=== PATIENT | female | born 1995 | race Caucasian/White ===

== ENCOUNTER 2019-07-16 08:00 | Outpatient (CLI) | payer OTHER | END 2019-07-16 23:59 | disposition home or self-care (01) | LOC: LAB.R 08:00 | PROVIDERS: ATTEND Obstetrics & Gynecology | DX: Z34.03 Encounter for supervision of normal first pregnancy, third trimester (principal) | CPT/HCPCS: 87797 ==

== ENCOUNTER 2019-07-17 15:12 | Outpatient (CLI) | payer OTHER ==
--- NOTE | 2019-07-18 08:53 | Ultrasound Report ---
Reason: UTERINE SIZE DATE DISCREPANCY Procedure Date: 07/17/2019 Accession Number: [id number] / [id number] Procedure: US - OB F/U or Repeat CPT Code: FULL RESULT: EXAM: FOLLOW-UP OBSTETRICAL ULTRASOUND EXAM DATE: 07/17/2019 03:31 PM. CLINICAL HISTORY: Uterine size date discrepancy. COMPARISON: Prior outside ultrasound not available.. TECHNIQUE: Real-time sonographic evaluation of the fetus performed by the edger machine setter. Additional transvaginal imaging to more accurately evaluate cervical length/placental position/etc. Multiple retail sales representative static images were saved for review. DATING: LMP unknown. Previous outside ultrasound not available. EGA 37 weeks 1 day with CHAKA 08/06/2019 based on the current ultrasound. GENERAL EVALUATION Sales . Cardiac activity: 153 bpm. movement: Visualized. Presentation: Cephalic. Placenta: Anterior fundal position. No evidence of previa. Amniotic fluid: Normal. WILMER 15.1 cm. MVP 3.7 cm. BIOMETRY Bi-Parietal Diameter (BPD): 9.1 cm, 37 weeks 1 day. Head Circumference (HC): 33.2 cm, 37 weeks 6 days. Abdominal Circumference (AC): 32.7 cm, 36 weeks 4 days. Femur Length (FL): 7.3 cm, 37 weeks 2 days. Estimated Weight: 3072 g, 79.4 percentile for 39 weeks 0 days. ANATOMY Limited anatomy examination. MATERNAL STRUCTURES Cervical os closed. Approximate cervical length is 5.0 cm. IMPRESSION: 1. Sales live intrauterine with gestational age 37 weeks 1 day based on current ultrasound. 2. Estimated weight is within expected limits for assigned dating. CJ
== END 2019-07-17 15:13 | disposition home or self-care (01) ==
LOC: DI 15:12
PROVIDERS: ATTEND Obstetrics & Gynecology
DX: O26.843 Uterine size-date discrepancy, third trimester (principal); Z3A.37 37 weeks gestation of pregnancy
CPT/HCPCS: 76816

== ENCOUNTER 2019-08-07 15:07 | Inpatient (IN) | payer OTHER ==
[2019-08-07 15:39] LABS: BASOPHILS # (AUTO) 0.1 10^3/uL (0.0-0.1); BASOPHILS % (AUTO) 0.4 %; EOSINOPHILS # (AUTO) 0.1 10^3/uL (0.0-0.7); EOSINOPHILS % (AUTO) 0.6 %; HGB - HEMOGLOBIN 12.9 g/dL (12.0-16.0); LYMPHOCYTES # (AUTO) 2.1 10^3/uL (1.5-3.5); LYMPHOCYTES % (AUTO) 17.3 %; MEAN CORPUSCULAR HEMOGLOBIN 30.2 pg (27.0-31.0); MEAN CORPUSCULAR VOLUME 86.4 fL (81.0-99.0); MONOCYTES # (AUTO) 1.2 10^3/uL (0.0-1.0); MONOCYTES % (AUTO) 10.3 %; NEUTROPHILS # (AUTO) 8.5 10^3/uL (1.5-6.6); NEUTROPHILS % (AUTO) 70.6 %; PLT - PLATELET COUNT 157 10^3/uL (130-450); RED BLOOD COUNT 4.27 10^6/uL (4.20-5.40); RED CELL DISTRIBUTION WIDTH 13.1 % (12.0-15.0)
[2019-08-07 15:50] LABS: URIC ACID 4.5 mg/dL (2.6-7.2)
[2019-08-07 15:53] LABS: CREATININE,URINE 27.1 mg/dL
[2019-08-07 15:57] LABS: TOTAL PROTEIN,URINE TIMED < 6 mg/dL
[2019-08-07] MEDS ORDERED: LABETALOL 100 MG TABLET PO SCH (16:31)
[2019-08-07] MEDS ORDERED: LABETALOL 20 MG/4 ML SYRINGE IV PRN (16:51)
[2019-08-07] MEDS ORDERED: SODIUM CHLORIDE FLUSH 0.9% 10 ML SYRINGE IVP PRN (16:51)
[2019-08-07] MEDS ORDERED: ACETAMINOPHEN 325 MG TABLET PO PRN (16:51)
[2019-08-07] MEDS ORDERED: fentaNYL 100 MCG/2 ML VIAL IVP PRN (16:51)
[2019-08-07] MEDS ORDERED: ONDANSETRON 4 MG/2 ML VIAL IVP PRN (16:51)
[2019-08-07 16:56] LABS: CALCIUM 8.9 mg/dL (8.5-10.3); CREATININE 0.5 mg/dL (0.4-1.0)
[2019-08-07] MEDS: miSOPROStol 100 MCG TABLET PO SCH ×2 (18:44→22:43)
[2019-08-07 18:55] LABS: BASOPHILS # (AUTO) 0.1 10^3/uL (0.0-0.1); BASOPHILS % (AUTO) 0.4 %; EOSINOPHILS % (AUTO) 0.2 %; LYMPHOCYTES % (AUTO) 16.3 %; MEAN CORPUSCULAR HGB CONC 33.6 g/dL (32.0-36.0); MEAN CORPUSCULAR VOLUME 86.2 fL (81.0-99.0); MEAN PLATELET VOLUME 11.1 fL (7.9-10.8); MONOCYTES # (AUTO) 0.9 10^3/uL (0.0-1.0); MONOCYTES % (AUTO) 7.4 %; NEUTROPHILS # (AUTO) 9.4 10^3/uL (1.5-6.6); PLT - PLATELET COUNT 160 10^3/uL (130-450); RED BLOOD COUNT 4.14 10^6/uL (4.20-5.40); RED CELL DISTRIBUTION WIDTH 13.2 % (12.0-15.0); WHITE BLOOD COUNT 12.5 x10^3/uL (4.8-10.8)
--- NOTE | 2019-08-07 21:38 | Ultrasound Report ---
Reason: gestational hypertension Procedure Date: 08/07/2019 Accession Number: [id number] / [id number] Procedure: US - OB Bio w/Non Stress CPT Code: FULL RESULT: EXAM: BIOPHYSICAL PROFILE EXAM DATE: 08/07/2019 05:38 PM. CLINICAL HISTORY: Gestational hypertension. COMPARISON: OB F/U OR REPEAT 07/17/2019 3:31 PM. TECHNIQUE: Real-time sonographic evaluation of the fetus performed by the water resource agent. Multiple regional sales representative static images were saved for review. DATING: Established EGA 38 weeks 6 days with CHAKA 08/15/2019. GENERAL EVALUATION Sales . Cardiac activity: 145 bpm. Presentation: Cephalic. Placenta: Anterior position. Amniotic fluid: Normal. WILMER 18.3 cm. MVP 5.5 cm. BIOPHYSICAL PROFILE Breathing = 2 Movement = 2 Tone = 2 Amniotic Fluid = 2 Total 05/24 IMPRESSION: 1. Sales live intrauterine with gestational age 38 weeks 6 days based on prior ultrasound. 2. Biophysical profile score 8 of 8. CJ
[2019-08-08] MEDS: miSOPROStol 100 MCG TABLET PO SCH ×4 (02:45→18:04)
--- NOTE | 2019-08-08 07:47 | PREOP HISTORY & PHYSICAL ---
DATE OF SERVICE: 08/07/2019 Physician: Rakesh Dia MD IDENTIFICATION: Patient is a 21-year-old, G1, P0 female whose EDC is noted to be 15 August. This was confirmed with early visits and ultrasound. This makes her 38.9 weeks. CHIEF COMPLAINT: Gestational hypertension. HISTORY OF PRESENT ILLNESS: Patient initially started her care at [facility]. She was transferred for her care at 36 weeks because of lack of availability. She has had an unremarkable course up until this time. Her hemoglobin was 13.9, her rubella titer was immune, RPR was negative. Hepatitis B, gonorrhea and chlamydia were both negative. She is noted to be O positive. The patient's 50 gram Glucola was 118. The patient was seen in the clinic today, at which time her blood pressure was noted to be 154/90. She had repeat blood pressures which continued to demonstrate systolic and diastolic hypertension. For this reason, she was sent over to labor and delivery for evaluation. The patient states that she has had difficulty with white coat hypertension during her with pressures at home are running 110/130s. Upon arrival here, her pressures have been running in the 164/105 and has had 3 blood pressures, which are greater than 160s over 100. For this reason, she is being evaluated. She had a CBC which showed a white count of 12.0, hemoglobin was 12.9, hematocrit was 36.9, platelets were 157. Her creatinine was noted to be 0.5. Her uric acid was 4.5. AST and ALT were both within normal limits at 11 and 13. Protein creatinine ratio was negative. PAST MEDICAL HISTORY: The patient denies any hypertensive, diabetic, or pulmonary disease. PAST SURGICAL HISTORY: Positive for wisdom teeth as well as scar revision to her left cheek. ALLERGIES: NONE KNOWN. CURRENT MEDICATIONS: vitamins. HABITS: Patient denies use of alcohol, tobacco or street or addictive drugs. 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 FAMILY HISTORY: Negative for any preeclampsia or hypertension at this time. She is also noted to be group B strep negative. PHYSICAL EXAMINATION GENERAL: Well-developed, well-nourished female, in no acute distress at this time. HEENT: Pupils are equal, round. Extraocular muscles are intact. Thyroid is not palpably enlarged. HEART: Regular rate and rhythm without murmurs. LUNGS: Lung kwong are clear without rales or wheezes. ABDOMEN: Gravid, nontender. There is no evidence of rebound. PELVIC: Cervical examination was by Dr. Chin. She shows no evidence of hyperreflexia or clonus. IMPRESSION 1. A 23-year-old primigravida with gestational hypertension without evidence of preeclampsia or proteinuria. 2. Severe range blood pressures. 3. Unfavorable cervix. PLAN: We will administer labetalol orally for taking care of her hypertension. We will utilize IV as necessary. We will also utilize cervical ripening with Cytotec. We will induce in the morning when favorable. TD: 08/08/2019 07:26 JULIAN
--- NOTE | 2019-08-08 08:27 | PROVIDER PROGRESS NOTE ---
Labor Progress Note - Uterine Monitoring Uterine Monitoring Mode: positive: External toco Contraction Frequency (min/apart): infrequent - Monitoring Monitor Mode: positive: External ultrasound Heart Rate Baseline: 135 Heart Rate Variability: positive: Moderate (6-25 bmp) Accelerations: positive: Present, 15x15 Decelerations: positive: None Strip Review: positive: Category I - Vaginal Exam Dilation (in cm): 2 Effacement (%): 50 Station: 0 Cervical Position: Midposition - Labor Progress Note Labor Progress Note/Additional Text: Pt received [address] cook catheter.
[2019-08-08 08:32] LABS: BASOPHILS # (AUTO) 0.1 10^3/uL (0.0-0.1); BASOPHILS % (AUTO) 0.5 %; EOSINOPHILS # (AUTO) 0.1 10^3/uL (0.0-0.7); EOSINOPHILS % (AUTO) 0.3 %; HGB - HEMOGLOBIN 13.3 g/dL (12.0-16.0); LYMPHOCYTES # (AUTO) 1.9 10^3/uL (1.5-3.5); LYMPHOCYTES % (AUTO) 12.9 %; MEAN CORPUSCULAR HEMOGLOBIN 29.8 pg (27.0-31.0); MEAN CORPUSCULAR HGB CONC 33.9 g/dL (32.0-36.0); MEAN CORPUSCULAR VOLUME 87.7 fL (81.0-99.0); MEAN PLATELET VOLUME 11.2 fL (7.9-10.8); MONOCYTES # (AUTO) 0.8 10^3/uL (0.0-1.0); MONOCYTES % (AUTO) 5.5 %; NEUTROPHILS # (AUTO) 11.9 10^3/uL (1.5-6.6); PLT - PLATELET COUNT 149 10^3/uL (130-450); RED BLOOD COUNT 4.47 10^6/uL (4.20-5.40); WHITE BLOOD COUNT 14.9 x10^3/uL (4.8-10.8)
[2019-08-08 08:45] LABS: URIC ACID 5.1 mg/dL (2.6-7.2)
[2019-08-08 08:45] LABS: CREATININE,URINE 67.2 mg/dL; PROTEIN/CREATININE RATIO,URINE 0.1 (<=0.2)
[2019-08-08] MEDS ORDERED: LABETALOL 100 MG TABLET PO SCH (09:00)
[2019-08-08] MEDS: OXYTOCIN/DEXTROSE 5 % 30 UNIT/500 ML BAG IV SCH (17:37)
[2019-08-08] MEDS: LACTATED RINGERS 1,000 ML IV SCH ×3 (17:37→18:03)
[2019-08-08] MEDS: SODIUM CHLORIDE FLUSH 0.9% 10 ML SYRINGE IVP SCH ×3 (17:40→18:03)
--- NOTE | 2019-08-08 20:18 | PROVIDER PROGRESS NOTE ---
Labor Progress Note - Uterine Monitoring Contraction Frequency (min/apart): Q5-6 min Contraction Intensity: positive: Mild - Monitoring Monitor Mode: positive: External ultrasound Heart Rate Baseline: 145 Heart Rate Variability: positive: Moderate (6-25 bmp) Accelerations: positive: Present, 15x15 Decelerations: positive: None Strip Review: positive: Category I - Vaginal Exam Dilation (in cm): 6 Effacement (%): 60 Station: -2 Cervical Position: Midposition - Labor Progress Note Labor Progress Note/Additional Text: LATE ENTRY FROM 13:00: Assumed care from Dr. Dia at 8:00 am. Pearce balloon had been placed after three doses of misoprostol. Balloon had been placed on minimal tension and remained in place. Stat lock was placed to put balloon on more tension. Plan was to opbserve for 2 more hours. If balloon remained in place, would start low dose pitocin. Pitocin was started with balloon in place. BPs had been in mild range on labetalol 100 mg po bid. Normal labs alhough P:C trending up. No symptoms. -Increased labetalol to 200 mg po bid and added low dose pitocin to augment Pearce bulb ripening. 20:00 UPDATE Pitocin at 3 mU/min Pearce bulb with loss of tension Tugging on catheter resulted in delivery of pearce balloon. SVE 6/60/-2/mid Membranes intact IOL: Will continue to up titrate pitocin per protocol -Consider AROM once ctx regular FWB: vertex/Cat I tracing GBS neg
[2019-08-08] MEDS ORDERED: ZOLPIDEM 5 MG TABLET PO PRN (20:20)
[2019-08-08] MEDS: LABETALOL 100 MG TABLET PO SCH (21:04)
[2019-08-09] MEDS: LACTATED RINGERS 1,000 ML IV SCH ×2 (03:51→13:41)
--- NOTE | 2019-08-09 06:54 | PROVIDER PROGRESS NOTE ---
Labor Progress Note - Uterine Monitoring Contraction Frequency (min/apart): Q3 min Contraction Intensity: positive: Moderate - Monitoring Monitor Mode: positive: External ultrasound Heart Rate Baseline: 145 Heart Rate Variability: positive: Moderate (6-25 bmp) Accelerations: positive: Present, 10x10 (=/32 wks) Decelerations: positive: None (Pitocin is currently at 8 milliunits/min. Patient is han well. Membranes are intact. SVE was 8/complete/-1 station per RN exam. Patient is still comfortable without epidural. Holding Pitocin at current given need for physician and election judge to be off the floor for 2 concurrent C-sections. Discussed with patient. Will restart Pitocin once physician/CNM staffing is appropriate Cat I tracing for labor given moderate variability and absence of decels) - Vaginal Exam Dilation (in cm): 8 Effacement (%): C Station: -2 - Labor Progress Note Labor Progress Note/Additional Text: Return Pitocin currently at 8 milliunits/min Holding Pitocin pending appropriate staffing Discussed with patient We will restart Pitocin once physician/midwifery available on floor
[2019-08-09] MEDS: LABETALOL 100 MG TABLET PO SCH ×2 (08:36→20:22)
[2019-08-09] MEDS ORDERED: ROPIVACAINE 0.2% 0 MG/0 ML BAG EP ONE (11:14)
[2019-08-09] MEDS: OXYTOCIN/DEXTROSE 5 % 30 UNIT/500 ML BAG IV SCH ×2 (11:17→11:49)
[2019-08-09] MEDS ORDERED: ROPIVACAINE 0.2% 200 MG/100 ML BAG EP ONE (16:30)
[2019-08-09] MEDS ORDERED: ROPIVACAINE 0.2% PF 20 ML AMPULE ONE (16:30)
--- NOTE | 2019-08-09 16:59 | ANESTHESIA ---
Pre-Anesthesia VS, & Labs - Diagnosis Term labor, IUP - Procedure Labor epidural Vital Signs: Temp Pulse Resp BP Pulse Ox 36.8 C 87 18 146/87 H 99 08/07/19 19:52 08/07/19 19:52 08/07/19 19:52 08/07/19 19:52 08/07/19 17:00 Height 5 ft 7 in Weight (kg) 88.904 kg - NPO Last Food Intake: full lunch@1400 - Is Patient ?: Yes - Lab Results Current Lab Results: Laboratory Tests 08/08/19 08:22: Uric Acid 5.1, AST 18 08/08/19 08:22: WBC 14.9 H, RBC 4.47, Hgb 13.3, Hct 39.2, MCV 87.7, MCH 29.8, MCHC 33.9, RDW 13.0, Plt Count 149, MPV 11.2 H, Neut # (Auto) 11.9 H, Lymph # (Auto) 1.9, Calloway # (Auto) 0.8, Eos # (Auto) 0.1, Baso # (Auto) 0.1, Absolute Nucleated RBC 0.00, Nucleated RBC % 0.0 08/08/19 08:22: Lactate Dehydrogenase 154 08/07/19 18:35: WBC 12.5 H, RBC 4.14 L, Hgb 12.0, Hct 35.7 L, MCV 86.2, MCH 29.0, MCHC 33.6, RDW 13.2, Plt Count 160, MPV 11.1 H, Neut # (Auto) 9.4 H, Lymph # (Auto) 2.0, Calloway # (Auto) 0.9, Eos # (Auto) 0.0, Baso # (Auto) 0.1, Absolute Nucleated RBC 0.00, Nucleated RBC % 0.0 08/07/19 15:28: Sodium 137, Potassium 3.4 L, Chloride 106, Carbon Dioxide 21, Anion Gap 10.0, BUN 9, Creatinine 0.5, Estimated GFR (MDRD) 154, Glucose 76, Calcium 8.9, AST 10, ALT 13 08/07/19 15:28: Uric Acid 4.5, AST 11 08/07/19 15:28: WBC 12.0 H, RBC 4.27, Hgb 12.9, Hct 36.9 L, MCV 86.4, MCH 30.2, MCHC 35.0, RDW 13.1, Plt Count 157, MPV 11.0 H, Neut # (Auto) 8.5 H, Lymph # (Auto) 2.1, Calloway # (Auto) 1.2 H, Eos # (Auto) 0.1, Baso # (Auto) 0.1, Absolute Nucleated RBC 0.00, Nucleated RBC % 0.0 08/07/19 15:28: Lactate Dehydrogenase 159 Lab results reviewed: Yes Fish Bones: 08/08/19 08:22 08/07/19 15:28 Home Medications and Allergies Active Medications Acetaminophen (Tylenol) 650 mg PO Q6H PRN PRN Reason: Pain or Fever Last Admin: 08/07/19 20:46 Dose: 650 mg Fentanyl (Fentanyl) 50 mcg IVP Q1H PRN PRN Reason: PAIN Lactated Ringer's (Lr) 1,000 mls @ 100 mls/hr IV .Q10H [facility] Last Admin: 08/09/19 13:41 Dose: 100 mls/hr OXYTOCIN/DEXTROSE 5 % (Pitocin/Dextrose 5%) 30 unit in 500 mls @ 1 mls/hr IV TITR [facility]; Protocol Stop: 08/09/19 16:59 Last Admin: 08/09/19 11:49 Dose: 2 milliunit/min, 2 mls/hr Oxytocin/Sodium Chloride (Pitocin/Sodium Chloride) 500 mls @ 1 mls/hr IV TITR [facility]; Protocol Labetalol HCl (Trandate Syringe) 10 mg IV Q10M PRN PRN Reason: SBP > 160 or DBP > 110 Labetalol HCl (Trandate) 200 mg PO BID [facility] Last Admin: 08/09/19 08:36 Dose: 200 mg Misoprostol (Cytotec) 50 mcg PO Q4HR [facility] Last Admin: 08/08/19 18:04 Dose: Not Given Ondansetron HCl (Zofran Inj) 4 mg IVP Q4HR PRN PRN Reason: Nausea / Vomiting Sodium Chloride (Normal Saline Flush 0.9%) 10 ml IVP 0100,0900,1700 [facility] Last Admin: 08/08/19 18:03 Dose: Not Given Sodium Chloride (Normal Saline Flush 0.9%) 10 ml IVP PRN PRN PRN Reason: NEEDED PER PROVIDER ORDERS Terbutaline Sulfate (Terbutaline) 0.25 mg SUBQ Q1H [facility] Zolpidem Tartrate (Ambien) 5 mg PO QPM PRN PRN Reason: Insomnia Last Admin: 08/08/19 21:49 Dose: 5 mg Allergies/Adverse Reactions: Allergies Allergy/AdvReac Type Severity Reaction Status Date / Time No Known Drug Allergies Allergy Verified 08/08/19 05:53 Anes History & Medical History - Anesthetic History Anesthesia Complications: reports: No previous complications Family history of Anesthesia Complications: Denies Family history of Malignant Hyperthermia: Denies - Medical History Cardiovascular: reports: Hypertension (gestational) Smoking Status: Never smoker - Surgical History Other Past Surgical History: wisdom teeth, mole at L face Exam General: Alert, Oriented x3, Cooperative Dental: WNL Mouth Openin Fingerbreadth Neck Mobility: Normal Mallampati classification: II Thyromental Distance: 4-6 cm Respiratory: No respiratory distress Cardiovascular: Regular rate Neurological: Normal speech Mental/Cognitive Status: Alert/Oriented X3, Normal for patient Cognitive Status: Within normal limits Plan Anesthesia Type: Epidural Consent for Procedure(s) Verified and Reviewed: Yes Code Status: Attempt Resuscitation ASA classification: 2-Mild systemic disease Is this case an emergency?: No
[2019-08-09] MEDS ORDERED: ePHEDrine 50 MG/ML VIAL IVP PRN (17:00)
[2019-08-09] MEDS ORDERED: METOCLOPRAMIDE 10 MG/2 ML VIAL IVP PRN (17:00)
[2019-08-09] MEDS ORDERED: NALOXONE 0.4 MG/ML VIAL IVP PRN (17:00)
[2019-08-09] MEDS ORDERED: NALBUPHINE 10 MG/ML AMP IVP PRN (17:00)
[2019-08-09] MEDS ORDERED: diphenhydrAMINE INJ 50 MG/ML VIAL IVP PRN (17:00)
[2019-08-09] MEDS ORDERED: LACTATED RINGERS 500 ML IV ONE (17:00)
[2019-08-09] MEDS ORDERED: ROPIVACAINE 0.2% 200 MG/100 ML BAG EP PRN (17:00)
[2019-08-09] MEDS ORDERED: ONDANSETRON 4 MG/2 ML VIAL IVP PRN (17:00)
[2019-08-09] MEDS ORDERED: OXYTOCIN/SODIUM CHLORIDE 500 ML IV SCH (17:00)
--- NOTE | 2019-08-09 23:09 | PROVIDER PROGRESS NOTE ---
Subjective - Prog Note Date Prog Note Date: 08/09/19 Prog Note Time: 17:38 - Subjective Subjective: LATE ENTRY: Pitocin was at 8 mU/min at 6:51 am and was discontinued due reduction in staff resources in the setting of serial urgent deliveries on the floor. Cervical dilation was 6 cm at the time. Pitocin was restarted at midday. She received an epidural for pain management at approxiamtely 4-4:30 pm. She was then examined at 17:30 and was 6-7 cm and 90% effaced. AROM for clear fluid. Pitocin was 8 mU/min. Cat I tracing. Objective - Vital Signs/Intake & Output Intake & Output: Intake & Output 08/06/19 08/07/19 08/08/19 08/09/19 23:59 23:59 23:59 23:59 Intake Total 750 2751.533 Output Total 140 Balance 750 2611.533 - Objective General Appearance: positive: No acute distress Respiratory: positive: No respiratory distress Cardiovascular: positive: Regular rate & rhythm - Lab Results Fish Bones: 08/08/19 08:22 08/07/19 15:28 Assessment/Plan - Problem List (1) Encounter for induction of labor Impression: Continue pitocin induction AROM with clear fluid Epidural for pain management GHTN with BP in mild range -Cont labetalol 200 mg po bid -Reviewed holding parameters -PIH labs wnl and symptoms absent FWB: vertex Cat I tracing GBS neg Anticipate
--- NOTE | 2019-08-09 23:13 | DELIVERY NOTE ---
Delivery Note - Labor Labor: positive: Induced by oxytocin - Infant Delivery Method Delivery Method: positive: Spontaneous vaginal delivery - Cervical Ripening Method Cervical Ripening Method: positive: Balloon device, Misoprostil, Oxytocin - Presentation Presentation: positive: Vertex - Nuchal Cord Nuchal Cord: positive: None - Anesthetic Anesthetic Type: - Amniotic Fluid Description Amniotic Fluid Description: positive: Clear - Laceration Laceration: positive: 1st degree - Suture Suture Type: positive: Vicryl Suture Size: positive: 3-0 - Delivery Outcome Delivery Outcome: positive: Livebirth - Ensign: positive: Placed in direct skin contact with mother, Suctioned, Bulb syringe, Stimulated, Warmed, [place] used Ensign sex: positive: Female - Cord Cord: positive: 3 vessels - Placenta Placenta: positive: Intact - Estimated Blood Loss Estimated Blood Loss (in cc): 200 - Post Delivery Events Post Delivery Events: positive: No post delivery events - Delivery Comments (Free Text/Narrative) Delivery Comments (Free Text/Narrative): Patient is a 23-year-old G1, P0 admitted at 38 weeks and 6 days estimated gestational age for gestational hypertension. Stage I: Initial SVE was unfavorable. She received misoprostol 50 mcg p.o. x3. Sandoval balloon catheter was then placed. While Sandoval catheter was then placed, she was started on low-dose Pitocin. After Sandoval balloon spontaneously expulsed, she was started on Pitocin for further induction. Maximum dose of Pitocin was 8 milliunits/min. Epidural for pain management. GBS negative. Blood pressures remained within mild range on labetalol 100 mg p.o. twice daily, increased to 200 mg p.o. twice daily. She was noted to be complete at 20:27 on 08/09/2019. Category 1 tracing throughout stage I. Stage II: Patient started pushing at 2113. She pushed well for 55 minutes, delivering a viable female in HERSON presentation. Shoulders delivered easily with right shoulder anterior. Baby was delivered to mother's abdomen. Cord clamping was delayed until cessations have been complete. The cord was then clamped x2 and cut. No nuchal cord.Apgars were 8 and 9. Weight is pending. Stage III: Placenta delivered spontaneous spontaneously with manual expression and gentle downward traction on the umbilical cord. It was examined and found to be intact. Inspection of the perineum showed first-degree midline perineal laceration and periurethral laceration. It was repaired in the usual sterile fashion with 3-0 Vicryl. EBL was 200 cc. Good hemostasis was noted. Procedure was well- tolerated and without complication.
[2019-08-09] MEDS ORDERED: SIMETHICONE CHEW 80 MG TABLET PO PRN (23:21)
[2019-08-09] MEDS ORDERED: ONDANSETRON ODT 4 MG TABLET TL PRN (23:21)
[2019-08-09] MEDS ORDERED: LACTATED RINGERS 1,000 ML IV SCH (23:45)
[2019-08-10] MEDS: ACETAMINOPHEN 500 MG TABLET PO SCH ×3 (00:26→16:36)
[2019-08-10] MEDS: SODIUM CHLORIDE FLUSH 0.9% 10 ML SYRINGE IVP SCH (03:49)
[2019-08-10] MEDS: TERBUTALINE 1 MG/ML VIAL SUBQ SCH ×2 (07:50→07:51)
[2019-08-10] MEDS: DOCUSATE SODIUM 100 MG CAPSULE PO PRN ×2 (08:37→20:57)
[2019-08-10] MEDS: LABETALOL 100 MG TABLET PO SCH ×2 (08:37→20:57)
[2019-08-10 11:41] LABS: BASOPHILS # (AUTO) 0.1 10^3/uL (0.0-0.1); BASOPHILS % (AUTO) 0.4 %; EOSINOPHILS # (AUTO) 0.1 10^3/uL (0.0-0.7); EOSINOPHILS % (AUTO) 0.3 %; HGB - HEMOGLOBIN 11.9 g/dL (12.0-16.0); LYMPHOCYTES # (AUTO) 1.6 10^3/uL (1.5-3.5); LYMPHOCYTES % (AUTO) 9.9 %; MEAN CORPUSCULAR HEMOGLOBIN 30.3 pg (27.0-31.0); MEAN CORPUSCULAR HGB CONC 34.6 g/dL (32.0-36.0); MEAN CORPUSCULAR VOLUME 87.5 fL (81.0-99.0); MEAN PLATELET VOLUME 11.1 fL (7.9-10.8); MONOCYTES # (AUTO) 1.7 10^3/uL (0.0-1.0); MONOCYTES % (AUTO) 10.3 %; NEUTROPHILS % (AUTO) 78.4 %; PLT - PLATELET COUNT 159 10^3/uL (130-450); RED BLOOD COUNT 3.93 10^6/uL (4.20-5.40); RED CELL DISTRIBUTION WIDTH 13.1 % (12.0-15.0); WHITE BLOOD COUNT 16.6 x10^3/uL (4.8-10.8)
--- NOTE | 2019-08-10 11:44 | PROVIDER PROGRESS NOTE ---
Subjective - Prog Note Date Prog Note Date: 08/10/19 Prog Note Time: 11:42 - Subjective Pt reports feeling: Improved (Pain 2/10, good pain control, manjinder ORTEGA Visual changes.) Subjective: PPD# 1 progressing 2. GHTN will repeat PIH labs currentlu on labetolol 200 mg bid Good BP control. Objective - Vital Signs/Intake & Output Reviewed Vital Signs: Yes Vital Signs: Vital Signs x48h Temp Pulse Resp BP Pulse Ox 08/10/19 08:00 37.5 C 89 16 143/81 H 100 08/10/19 04:05 36.7 C 83 16 137/83 H 100 Intake & Output: Intake & Output 08/07/19 08/08/19 08/09/19 08/10/19 23:59 23:59 23:59 23:59 Intake Total 750 3251.533 1500 Output Total 315 1500 Balance 750 2936.533 0 - Objective General Appearance: positive: No acute distress, Alert (up ambulating) Respiratory: positive: Chest non-tender, No respiratory distress, Breath sounds nml Cardiovascular: positive: Regular rate & rhythm, No murmur, No gallop Abdomen: positive: Non-tender, No organomegaly, Nml bowel sounds, Mass (U-1) Back: negative: CVA tenderness (R), CVA tenderness (L) Extremities: negative: Calf tenderness, Guille's sign/cords Reflexes: Knee (R): 2+ (single beat clonus), Knee (L): 2+ - Lab Results Fish Bones: 08/08/19 08:22 08/07/19 15:28
[2019-08-10 11:53] LABS: BILIRUBIN,TOTAL 0.8 mg/dL (0.2-1.0); CREATININE 0.4 mg/dL (0.4-1.0); TOTAL PROTEIN 6.1 g/dL (6.7-8.2)
[2019-08-10 11:54] LABS: URIC ACID 4.1 mg/dL (2.6-7.2)
[2019-08-10 15:31] LABS: CREATININE,URINE 42.7 mg/dL; PROTEIN/CREATININE RATIO,URINE 0.2 (<=0.2)
[2019-08-11] MEDS: ACETAMINOPHEN 500 MG TABLET PO SCH ×2 (00:31→08:35)
[2019-08-11 07:49] VITALS: BP 132/69
[2019-08-11] MEDS: LABETALOL 100 MG TABLET PO SCH (08:34)
[2019-08-11] MEDS: DOCUSATE SODIUM 100 MG CAPSULE PO PRN (08:34)
--- NOTE | 2019-08-11 11:26 | Labor Flowsheet ---
Labor Flowsheet Datetime Report Generated by CPN: 08/11/2019 11:26 Datetime: 08/11/2019 07:30 VITAL SIGNS NBP Sys/Luisa/Mean (mmHg): 132 : 69 : 82 Pulse: 89 SpO2 (%): 100 LaborFlag: Labor Datetime: 08/09/2019 23:30 Membranes Ruptured Date/Time: 08/09/2019 17:20 Datetime: 08/09/2019 22:16 Stage 2 Comments: Spontaneous delivery of intact placenta @ 2216. Routine discard Datetime: 08/09/2019 22:09 ASSESSMENT A Monitor Mode: Telemetry Comments: indeterminate baseline, FH tones seen ranging from 160s down to 60s STAGE 2 Pushing: Coached on Pushing; Urge to Push Pushing Position: Pushing with Contractions Pushing Progress: Descent with Pushing Datetime: 08/09/2019 22:00 UTERINE ACTIVITY Monitor Mode: External Frequency (min): 2-2.5 Quality: Strong Duration (sec): 40-115 Pattern: Normal: <= 5 Contractions in 10 Minutes Resting Tone (Palpate): Relaxed Pitocin Checklist: No More than 5 Uterine Contractions in 10 Minutes for any 20 Minute Interval; Ut erus Palpates Soft between Contractions FHR Baseline Rate : 140 Variability: Minimal - Undetectable to <=5 bpm Accelerations: None Decelerations: Early; Late; Variable Category: Category II Datetime: 08/09/2019 21:20 Oxygen Method: Room Air Datetime: 08/09/2019 21:00 Communication Comments: Dr. Mendez on unit at this time Datetime: 08/09/2019 20:48 Temperature (C): 36.8 Datetime: 08/09/2019 20:34 Stage of : Labor COMMUNICATION Communication: Call/Page Placed to Provider Provider Notified (Name): Dr. Mendez Notification Reason: Status Update Datetime: 08/09/2019 20:27 VAGINAL EXAM Dilatation (cm): 10.0 Effacement (%): 100 Station: 1 Exam by: Padmaja Galdamez RN Vaginal Bleeding: None Cervix, Consistency: Soft Cervix, Position: Anterior Datetime: 08/09/2019 20:22 Medication Comments: 200mg Labetalol Datetime: 08/09/2019 19:38 MATERNAL ASSESSMENT Level of Consciousness: Fully Conscious DTR's/Clonus: DTRs 1+ Headache: Denies Breath Sounds, Left: Clear and Equal Breath Sounds, Right: Clear and Equal Nausea/Vomiting: Denies RUQ Epigastric Pain: Denies Maternal Comments: numbness/tingling in knees Datetime: 08/09/2019 19:33 Pain Assessment Comments: notices pressure with ctx. Not comfortable Datetime: 08/09/2019 18:57 Respirations: 16 Pain Presence: None/Denies I/O Interventions: Clear Liquids Given Anesthesia Level Check: T10- Umbilicus Datetime: 08/09/2019 18:15 Patient Position/Activity: High Fowlers Datetime: 08/09/2019 18:01 PAIN Pain Scale: 8 Pain Location: Left Groin Datetime: 08/09/2019 17:20 Membrane Status: Ruptured Membranes Rupture Method: Artificial Amniotic Fluid Color: Clear Amniotic Fluid Amount: Small Datetime: 08/09/2019 16:47 Epidural Procedure: Completed Datetime: 08/09/2019 16:39 Anesthesia Comments: bolus dose Datetime: 08/09/2019 16:30 Monitor Interventions for UA: Earle Adjusted Contraction Comments: difficult to assess patient positioning for epidural Datetime: 08/09/2019 16:24 PROCEDURE TIME OUT Procedure Verify: Correct Patient Identity; Correct Side and Site are Marked; Accurate Procedure Co nsent Form; Agreement on Procedure to be Done; Correct Patient Position; Safety Precautions Based on Patient History or Medication Use ANESTHESIA Anesthesia Plans: Epidural Epidural Positioning: Sitting Datetime: 08/09/2019 16:15 FHR Baseline Changes: No Baseline Change Datetime: 08/09/2019 15:46 Temperature Route: Oral Datetime: 08/09/2019 15:43 MEDICATIONS Pitocin (milliunits): Increased to @ 8 Datetime: 08/09/2019 15:41 Pain Type: Contraction Pain Relief Measures: Comfort Measures Datetime: 08/09/2019 15:39 Pain Coping: Requesting Pain Medication or Epidural Datetime: 08/09/2019 14:50 Comfort Measures: Breathing/Relaxation; Family Support Patient Care Comments: ambulating in room, sitting in rocking chair Datetime: 08/09/2019 13:43 Monitor Interventions for FHR: Ultrasound Adjusted Datetime: 08/09/2019 13:41 PATIENT CARE IV/Blood Work: New IV Bag Hung Datetime: 08/08/2019 23:54 Vital Sign Comments: upper arm Datetime: 08/08/2019 21:50 Analgesics/Sedatives: Ambien (mg) @ 5 Datetime: 08/08/2019 20:05 Vaginal Exam Comments: Sandoval bulb out Datetime: 08/08/2019 08:39 Cervical Ripening Agents: Sandoval Balloon; Cytotec @ Datetime: 08/08/2019 06:45 Provider Reviewed Strip: No Strip Reviewed by: Bryant Datetime: 08/07/2019 19:45 TEACHING Instructional Method: Verbal Plan of Care: Plan of Care Discussed Labor/Induction: Cervical Ripening Datetime: 08/07/2019 18:13 Unit Routine: [place] to Room; Call Carranza
--- NOTE | 2019-08-11 12:03 | PROVIDER PROGRESS NOTE ---
Subjective - Prog Note Date Prog Note Date: 08/11/19 Prog Note Time: 12:01 - Subjective Pt reports feeling: Improved (Pt manjinder ORTEGA or visual changes. breast feeding.) Objective - Vital Signs/Intake & Output Vital Signs: Vital Signs x48h Temp Pulse Resp BP Pulse Ox 08/11/19 07:48 36.9 C 93 19 132/69 H 100 08/11/19 04:10 127/74 Intake & Output: Intake & Output 08/08/19 08/09/19 08/10/19 08/11/19 23:59 23:59 23:59 23:59 Intake Total 750 3251.533 2600 1200 Output Total 315 1500 Balance 750 2936.533 1100 1200 - Objective General Appearance: positive: No acute distress, Alert Abdomen: positive: Non-tender, No organomegaly, Nml bowel sounds, No distention - Lab Results Fish Bones: 08/10/19 11:25 08/10/19 11:25 Other Labs: Lab Results x24hrs 08/10/19 08/10/19 Range/Units 15:08 11:25 Lactate Dehydrogenase 196 (91-225) IU/L Urine Creatinine 42.7 mg/dL Ur Total Protein Timed 8 mg/dL Protein/Creatinin Ratio 0.2 (<=0.2) Assessment/Plan - Problem List (1) (spontaneous vaginal delivery) Impression: recovering with out difficulty. breast feeding Discharge Meds: motrin 800 mg Colace 100 mg micronor. RTC one week (2) Gestational [-induced] hypertension without significant proteinuria, second trimester Impression: blood pressior controlled. labs are normal. Taking Labetolol 200 mg twice dailly.
--- NOTE | 2019-08-11 19:42 | DISCHARGE SUMMARY ---
Physician: Rakesh Dia MD DATE OF ADMISSION: 08/07/2019 DATE OF DISCHARGE: 08/11/2019 ADMITTING DIAGNOSES 1. 39.6 weeks. 2. Gestational hypertension. DISCHARGE DIAGNOSES 1. 39.6 weeks. 2. Gestational hypertension. 3. Delivery, live female . PROCEDURES 1. Cytotec x3. 2. Cook catheter. 3. Pitocin induction. 4. Epidural. 5. Assisted vaginal delivery. PRESENTING HISTORY/ IDENTIFICATION: Patient is a 23-year-old. She is 1, para 0. Her due date was 08/15/2019. She initially had her OB care at [facility]. She transferred her care at 36 weeks because of lack of availability. Her care was unremarkable up until the morning of admission, at which time in the clinic, her blood pressure was 154/90. She was sent over here and continued to have hypertension in the 150s-160s over 90s-100s. For this reason, it was decided to pursue on with delivery. She states she had difficulty with hypertension with her first . This also required labetalol 200 mg p.o. b.i.d. LABORATORIES On admission, her white count was 12.0, hemoglobin was 12.9, hematocrit 36.9, platelets were 157. On the day prior to discharge, her white count was 16.6. Her platelets were 159, her hemoglobin was 11.9. Chemistries: The patient's AST and ALT remained normal the whole time. Her uric acid initially was 5.1 but fell to 4.1 on 08/10/2019. The patient's urine/protein/creatinine ratio initially was, but on 08/10/2019, it was 0.2. HOSPITAL COURSE: The patient was admitted. She received Cytotec x3. The following morning she had a Sandoval catheter placed, which was spontaneously expelled. She was started on Pitocin for induction. She received an epidural for labor analgesia. Her delivery was unremarkable. At time of delivery, she suffered a first-degree laceration. This was repaired. Her blood loss at time of delivery was 200 mL. She is being discharged to home with instructions to follow up in the clinic in 1 week. DISCHARGE MEDICATIONS Her discharge medications are those of: 1. Motrin. 2. Colace. 3. Micronor. She has been encouraged to breastfeed, and the issues of mastitis have been reviewed. TD: 08/11/2019 12:19 MTDD
== END 2019-08-11 11:00 | disposition home or self-care (01) | DRG 807 ==
LOC: WFO 15:07 → FBP 15:10 → WFO 16:50 → FBP 16:51
PROVIDERS: ADMIT Obstetrics & Gynecology; ATTEND Obstetrics & Gynecology
PROC: 0U7C7ZZ Dilation of Cervix, Via Natural or Artificial Opening (ICD-10-PCS; 2019-08-08)
PROC: 10E0XZZ Delivery of Products of Conception, External Approach (ICD-10-PCS; principal; 2019-08-09)
PROC: 0HQ9XZZ Repair Perineum Skin, External Approach (ICD-10-PCS; 2019-08-09)
PROC: 10907ZC Drainage of Amniotic Fluid, Therapeutic from Products of Conception, Via Natural or Artificial Opening (ICD-10-PCS; 2019-08-09)
DX: O13.4 Gestational [pregnancy-induced] hypertension without significant proteinuria, complicating childbirth (principal); O70.0 First degree perineal laceration during delivery; Z37.0 Single live birth; Z3A.40 40 weeks gestation of pregnancy
CPT/HCPCS: 36415; 59025; 76818; 80048; 80053; 82570; 83615; 84156; 84450; 84460; 84550; 85025; A9270; J7120